=== PATIENT | female | born 2005 | race Two or more races ===

== ENCOUNTER 2024-02-29 17:26 | Emergency (ER) | payer OTHER ==
[~2024-02-29] VITALS: Ht 170.2 cm; Wt 65.8 kg
[2024-02-29] MEDS ORDERED: KETOROLAC TROMETHAMINE 30 MG VIAL IM STA (21:12)
[2024-02-29 23:19] LABS: HEMATOCRIT 36.6 % (36.0-45.00); HEMOGLOBIN 12.1 g/dL (12.0-15.00); MEAN CELL VOLUME 76.9 fL (80.00-100.00); MEAN CORPUSCULAR HEMOGLOBIN 25.5 pg (27.00-32.0); MEAN CORPUSCULAR HGB CONC 33.2 g/dl (32.0-36.0); PLATELET COUNT 226 K/uL (150-450); RED BLOOD COUNT 4.76 M/uL (4.00-6.00); RED CELL DISTRIBUTION WIDTH 13.6 % (11.5-14.5)
[2024-02-29 23:22] LABS: URINE APPEARANCE Clear; URINE BILIRRUBIN Negative (NEGATIVE); URINE BLOOD Moderate; URINE COLOR Yellow; URINE GLUCOSE Negative (NEGATIVE); URINE KETONE Negative (NEGATIVE); URINE LEUKOCYTE Moderate; URINE NITRATE Negative; URINE PROTEIN Negative (NEGATIVE); URINE UROBILINOGEN 0.2 E.U./dl
[2024-02-29 23:25] LABS: URINE BACTERIA 786.1 uL (0.0-1933); URINE EPITHELIAL CELLS 15.7 uL (0.0-38.8); URINE RBC 10.8 uL (0.0-20.8); URINE WBC 370.9 uL (0.0-23.2)
== END 2024-03-01 00:01 | disposition home or self-care (01) ==
LOC: ER 17:28
PROVIDERS: General Practice
DX: N39.0 Urinary tract infection, site not specified (principal); R30.0 Dysuria